=== PATIENT | female | born 2005 | race Caucasian/White ===

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

== ENCOUNTER 2024-01-20 05:15 | Outpatient (CLI) | payer MEDICAID, SELFPAY ==
[2024-01-20 07:25] LABS: Abs Immature Grans 0.04 10^3/uL (0.0-0.06); Absolute Basophil Count 0.04 10^3/uL (0.0-0.2); Absolute Eosinophil Count 0.11 10^3/uL (0.0-0.7); Absolute Lymphocyte Count 2.03 10^3/uL (1.2-3.4); Absolute Monocyte Count 0.41 10^3/uL (0.1-0.8); Absolute Neutrophil Count 2.54 10^3/uL (1.2-6.7); Basophils % 0.8 %; Eosinophils % 2.1 %; HCT 37.9 % (36.0-46.0); HGB 12.9 g/dL (11.2-15.7); Immature Grans % 0.8 %; Lymphocytes % 39.3 %; MCH 31.8 pg (27.0-33.0); MCV 93 fL (80-95); MPV 11.5 fL (8.0-11.0); Monocytes % 7.9 %; Neutrophils % 49.1 %; Platelet Count 199 10^3/uL (130-400); RBC 4.06 10^6/uL (3.93-5.22); RDW 12.2 % (11.7-14.6); RDW-SD 42.5 fL; WBC 5.17 10^3/uL (4.4-10.8)
[2024-01-20 07:58] LABS: ALT 17 U/L (14-59); AST 12 U/L (15-37); Albumin 4.1 g/dL (3.4-5.0); Alkaline Phosphatase 71 U/L (46-116); Anion Gap 7.6 mmol/L (3-11); BUN 8 mg/dL (7-18); Bilirubin, Total 0.7 mg/dL (0.2-1.0); CO2 30.4 mmol/L (21.0-32.0); CREATININE 0.8 mg/dL (0.55-1.02); Calcium 9.3 mg/dL (8.5-10.1); Calculated LDL 58 mg/dL (<100); Chloride 104 mmol/L (98-107); Cholesterol 141 mg/dL (<200); Estimated GFR 108.78 (mL/min/1.73m2); Glucose 100 mg/dL (74-106); HDL Cholesterol 70 mg/dL (40-60); Potassium 3.4 mmol/L (3.5-5.1); Sodium 142 mmol/L (136-145); TSH (W/Ref FT4) 1.52 uIU/mL (0.52-4.13); Total Protein 7.2 g/dL (6.4-8.2); Triglyceride 66 mg/dL (<150)
[2024-01-20 08:44] LABS: Hemoglobin A1C 5.7 % (<5.7)
== END 2024-01-20 05:16 | disposition home or self-care (01) ==
LOC: LBO 05:15
PROVIDERS: PCP Nurse Practitioner Family; Visit Provider Nurse Practitioner Pediatrics
DX: R42 Dizziness and giddiness (principal)
CPT/HCPCS: 36415; 80053; 80061; 83036; 84443; 85025

== ENCOUNTER 2024-02-17 15:23 | Outpatient (REF) | payer MEDICAID, SELFPAY ==
[2024-02-19 12:33] LABS: Chlamydia Result Negative (Negative)
[2024-02-19 17:43] LABS: GC Result Negative (Negative)
== END 2024-02-17 15:24 | disposition home or self-care (01) ==
LOC: LBN 15:23
PROVIDERS: PCP Nurse Practitioner Family; Visit Provider Obstetrics & Gynecology
DX: R10.2 Pelvic and perineal pain (principal)
CPT/HCPCS: 87491; 87591; 87480; 87510; 87660

== ENCOUNTER → 2024-02-26 00:29 | Outpatient (CLI) | payer MEDICAID, SELFPAY ==
--- NOTE | 2024-02-26 06:30 | DI.US_ITS ---
Exam(s) US PELVIS TRANSVAGINAL EXAM: US PELVIS TRANSVAGINAL CLINICAL HISTORY: pelvic pain, IUD in place, R10.2, Z97.5 TECHNIQUE: Ultrasound of the pelvis was performed both transabdominal and transvaginal. COMPARISON: No exams were available for comparison FINDINGS: UTERUS: Anteverted and nongravid and contains an IUD which appears to be in good position tejeda as d etermined by 3D software rendering. Uterus measures 6.8 cm length x 2.5 cm AP x 4.3 cm wide. There are no uterine fibroids. Endometrial thickness measures 2-3 mm. There is no fluid in the endometrial canal. CERVIX: There are no obvious nabothian cysts. RIGHT OVARY: Measures 4 x 3.4 x 3.0 cm Contains sub cm follicular cysts. LEFT OVARY: Measures 4.6 x 3.2 x 2.3 cm Contains sub cm follicular cysts. CUL-DE-SAC: No free fluid evident. IMPRESSION: 1. There is an IUD in satisfactory position in the endometrial canal. No other significant uterus fi ndings 2. Age-appropriate small follicular cysts are noted in both ovaries. 3. No free fluid evident in the adnexal regions and cul-de-sac. DATA REPOSITORY:
== END ==
PROVIDERS: PCP Nurse Practitioner Family; Visit Provider Obstetrics & Gynecology
DX: R10.2 Pelvic and perineal pain (principal); Z97.5 Presence of (intrauterine) contraceptive device
CPT/HCPCS: 76830; 76856

== ENCOUNTER 2024-04-06 03:09 | Outpatient (CLI) | payer SELFPAY ==
[2024-04-07 08:07] LABS: Measles IgG Antibody Negative (See Note)
[2024-04-07 08:11] LABS: Mumps Antibody IgG Negative (See Note); Rubella IgG Ab (UVM) Positive (See Note)
[2024-04-07 08:57] LABS: HBs Antibody, Quant 3.7 mIU/mL (See Note); Hepatitis B Surface Ab Negative (See Note)
[2024-04-07 09:12] LABS: Hepatitis B Surface Ag Negative (Negative)
[2024-04-08 14:50] LABS: TB Interpretation Negative (Negative); TB1 Ag minus Nil 0.01 IU/ml
== END 2024-04-06 03:10 | disposition home or self-care (01) ==
LOC: LBO 03:10
PROVIDERS: PCP Nurse Practitioner Family; Visit Provider Nurse Practitioner Family
DX: Z02.1 Encounter for pre-employment examination (principal)
CPT/HCPCS: 36415; 86706; 87340; 86480; 86735; 86762; 86765

== ENCOUNTER 2025-01-06 07:49 | Outpatient (CLI) | payer OTHER, SELFPAY ==
[2025-01-06 07:10] LABS: Abs Immature Grans 0.01 10^3/uL (0.0-0.06); Absolute Basophil Count 0.04 10^3/uL (0.0-0.2); Absolute Eosinophil Count 0.12 10^3/uL (0.0-0.7); Absolute Lymphocyte Count 1.92 10^3/uL (1.2-3.4); Absolute Monocyte Count 0.37 10^3/uL (0.1-0.8); Absolute Neutrophil Count 2.75 10^3/uL (1.2-6.7); Basophils % 0.8 %; Eosinophils % 2.3 %; HCT 38.5 % (36.0-46.0); HGB 12.9 g/dL (11.2-15.7); Immature Grans % 0.2 %; Lymphocytes % 36.9 %; MCH 31.4 pg (27.0-33.0); MCHC 33.5 % (32.0-36.0); MCV 94 fL (80-95); MPV 11.5 fL (8.0-11.0); Monocytes % 7.1 %; Neutrophils % 52.7 %; Platelet Count 209 10^3/uL (130-400); RBC 4.11 10^6/uL (3.93-5.22); RDW 12.3 % (11.7-14.6); RDW-SD 42.3 fL; WBC 5.21 10^3/uL (4.4-10.8)
[2025-01-06 07:32] LABS: Hemoglobin A1C 4.9 % (<5.7)
[2025-01-06 08:32] LABS: ALT 19 U/L (14-59); AST 13 U/L (15-37); Albumin 4.2 g/dL (3.4-5.0); Alkaline Phosphatase 70 U/L (46-116); Anion Gap 5.2 mmol/L (3-11); BUN 8 mg/dL (7-18); Bilirubin, Total 0.5 mg/dL (0.2-1.0); CO2 29.8 mmol/L (21.0-32.0); CREATININE 0.8 mg/dL (0.55-1.02); Calcium 9.5 mg/dL (8.5-10.1); Chloride 105 mmol/L (98-107); Estimated GFR 108.11 (mL/min/1.73m2); Ferritin 100 ng/mL (8-252); Glucose 101 mg/dL (74-106); Potassium 3.8 mmol/L (3.5-5.1); Sodium 140 mmol/L (136-145); TSH (W/Ref FT4) 0.79 uIU/mL (0.36-3.74); Total Protein 7.3 g/dL (6.4-8.2)
== END 2025-01-06 07:50 | disposition home or self-care (01) ==
LOC: LBO 07:56
PROVIDERS: PCP Nurse Practitioner Family; Visit Provider Nurse Practitioner Pediatrics
DX: Z91.89 Other specified personal risk factors, not elsewhere classified (principal); G47.00 Insomnia, unspecified
CPT/HCPCS: 36415; 80053; 82728; 83036; 83735; 84443; 85025

== ENCOUNTER 2025-04-11 13:53 | Outpatient (CLI) | payer OTHER, SELFPAY ==
--- NOTE | 2025-04-11 12:00 | DI.RAD_ITS ---
Exam(s) XR HAND RT COMPLETE EXAM: XR HAND RT COMPLETE CLINICAL HISTORY: unable to move right thumb after fall,injury,[id number]. TECHNIQUE: 2D digital imaging was performed. COMPARISON: No exams were available for comparison FINDINGS: 3 views No evidence of fracture or dislocation no abnormal soft tissue densities. Bone density normal. No osseous lesions nor erosions. No degenerative changes. No abnormal widening of the metacarpal phalangeal joint of the thumb. First carpometacarpal joint appears unremarkable. The interphalangeal joint of the thumb appears unremarkable. IMPRESSION: No significant radiographic findings in the right hand and thumb. DATA REPOSITORY: RADIATION DOSE DELIVERED:
== END 2025-04-11 14:13 ==
LOC: DI 13:55
PROVIDERS: PCP Nurse Practitioner Family; Visit Provider Pediatrics
DX: S69.91XA Unspecified injury of right wrist, hand and finger(s), initial encounter (principal); X58.XXXA Exposure to other specified factors, initial encounter
CPT/HCPCS: 73130

== ENCOUNTER 2025-05-25 07:34 | Outpatient (CLI) | payer OTHER, SELFPAY ==
[2025-05-25 08:08] LABS: Calculated LDL 86 mg/dL (<100); Cholesterol 167 mg/dL (<200); HDL Cholesterol 69 mg/dL (>or=50); Triglyceride 62 mg/dL (<150)
== END 2025-05-25 07:35 | disposition home or self-care (01) ==
LOC: LBO 07:34
PROVIDERS: PCP Nurse Practitioner Family; Visit Provider Nurse Practitioner Pediatrics
DX: Z13.220 Encounter for screening for lipoid disorders (principal)
CPT/HCPCS: 36415; 80061